=== PATIENT | female | born 1960 | race Caucasian/White ===

== ENCOUNTER → 2018-10-30 | Day surgery (SDC) | payer BC, OTHER ==
[~2018-10-30] MED LIST: ASPI325T8 PO; CARV25TA PO; CYCL5TAB PO; HYDR50TA6 PO; IBUP-1007 PO; IV RINGERS,LACTATED 1000ML 1,000 ML IV SCH; LEVO150T PO; LIDOCAINE 1% PF 2 ML VIAL. ID PRN; LIDOCAINE 1% PF 2 ML VIAL. ONE; ONDANSETRON PF 4 MG/2 ML VIAL. IV PRN; PROCHLORPERAZINE 10 MG/2 ML VIAL. IV PRN; PROPOFOL 40 ML IV ONE; RANI300T3 PO; fentaNYL PF VIAL 100 MCG/2 ML VIAL IV PRN
[2018-10-30 09:06] VITALS: BP 150/65
--- NOTE | 2018-10-30 09:07 | CONS ---
DATE OF CONSULTATION: 10/30/2018 REFERRING PHYSICIAN: Dr. Celestino Lyons. HISTORY OF PRESENT ILLNESS: This is a 58-year-old female with past medical history significant for hypothyroidism, hypertension, Petty-Danlos syndrome, history of colonic polyps, is seen for colon exam. Bowel habits as we know is constipated. She has taken MiraLax in the past with bowel movements up to once every 2 weeks. She is interested in pursuing additional therapy pending colonoscopic findings. PAST MEDICAL HISTORY: Mitral valve prolapse, high blood pressure, Petty-Danlos syndrome, thyroid disease, gallstones colonic polyps. ALLERGIES: IODINE, MORPHINE. MEDICATIONS: Include Coreg, cyclobenzaprine, ibuprofen, levothyroxine, and ranitidine. FAMILY HISTORY: Positive for colon cancer with her father and maternal grandmother. SOCIAL HISTORY: She is a nonsmoker, social drinker. PAST SURGICAL HISTORY: Status post C-sections, cholecystectomy, hysterectomy, breast lumpectomy and tonsillectomy. REVIEW OF SYSTEMS: Per records. PHYSICAL EXAMINATION: GENERAL: Reveals well-nourished, well-developed female. VITAL SIGNS: Temperature is 97.5, pulse 65 and regular rate, respirations 20. HEENT: Normocephalic and atraumatic head. Pupils and extraocular muscles are not tested. Sclerae anicteric. NECK: Supple. LUNGS: Clear. CARDIOVASCULAR: Reveals an S1, S2 without S3, S4 or appreciable murmur. ABDOMEN: Soft abdomen, normal bowel sounds without appreciable hepatosplenomegaly. EXTREMITIES: Reveals no cyanosis, clubbing or edema. IMPRESSION: 1. History of colonic polyps. 2. Family history of colon cancer. PLAN: Surveillance exam is warranted at this time. Medical therapy for constipation will be pursued if no stricture or obstruction is encountered with Linzess and/or Amitiza. KEERTHI MELO MD DR: EMELINA/johanny JOB#: [id number] / [id number]
--- NOTE | 2018-11-02 13:09 | PATHOLOGY ---
[facility] Accession Number: [id number] . 01 Material submitted: . SIGMOID POLYP . 01 Clinical history: . Family HX colon cancer, Hx polyps . 02 Diagnosis: Colon biopsy, sigmoid polyp: - Hyperplastic polyp. [facility]/11/02/2018 . 02 Comment: There are no adenomatous changes or evidence of malignancy. (JPM:[facility] 11/02/2018) . 02 Electronically signed: . Jayson Em MD, Pathologist NPI- [id number] . 01 Gross description: . Received in formalin labeled "Henriquez, Smiley, sigmoid polyp," is a single segment of wagoner soft tissue measuring 0.4 cm in maximum dimension. The specimen is entirely submitted in cassette A1. ([facility]; 10/30/2018) TOB/TOB . 02 Pathologist provided ICD-10: K63.5 . 02 CPT . 360416 Specimen Comment: A courtesy copy of this report has been sent to Specimen Comment: [phone], . Specimen Comment: Report sent to / DR CHASE Specimen Comment: A duplicate report has been generated due to demographic updates. Performed at: 01 [facility] [address] [facility] [address], [place] [id number] MD Sonido Hauser MD Phone: [phone] Performed at: 02 [facility] [address] [place], [place] [id number] MD Jayson Em MD Phone: [phone]
== END | disposition home or self-care (01) ==
LOC: SURG 06:51
PROVIDERS: ATTEND Internal Medicine Gastroenterology
DX: K63.5 Polyp of colon (principal); K64.0 First degree hemorrhoids; I10 Essential (primary) hypertension; E03.9 Hypothyroidism, unspecified; Z88.5 Allergy status to narcotic agent; Z91.041 Radiographic dye allergy status; I34.1 Nonrheumatic mitral (valve) prolapse; Q79.6 Ehlers-Danlos syndromes; Z86.010 Personal history of colon polyps; Z79.899 Other long term (current) drug therapy; Z80.0 Family history of malignant neoplasm of digestive organs; Z72.89 Other problems related to lifestyle; Z90.49 Acquired absence of other specified parts of digestive tract; Z90.710 Acquired absence of both cervix and uterus; Z98.890 Other specified postprocedural states
CPT/HCPCS: 45380; 88305; J2704